=== PATIENT | female | born 1970 | race American Indian/Alaskan Native ===

== ENCOUNTER 2017-03-19 11:17 | Emergency (ER) | payer SELFPAY ==
[2017-03-19 11:28] VITALS: BP 163/84
--- NOTE | 2017-03-19 12:06 | XRay Report ---
X-RAY LEFT FOOT THREE VIEWS: 03/19/17 11:30:00 CLINICAL: Injury to the fifth toe. FINDINGS: No fracture or dislocation. Mild soft tissue swelling lateral to the fifth MTP joint. No soft tissue air or foreign body. IMPRESSION: Soft tissue injury.
== END 2017-03-19 12:50 | disposition left against medical advice (07) ==
LOC: ED 11:17
DX: M79.675 Pain in left toe(s) (principal); Z53.21 Procedure and treatment not carried out due to patient leaving prior to being seen by health care provider